=== PATIENT | female | born 1955 ===

== ENCOUNTER 2021-08-23 07:57 | Outpatient (CLI) | payer MEDICARE ==
[2021-08-23] MEDS ORDERED: Iopamidol 370 76% 100 ML VIAL ONE (15:41)
== END 2021-08-23 07:58 | disposition home or self-care (01) ==
LOC: CT 07:57
PROVIDERS: ATTEND Specialist
DX: I71.4 Abdominal aortic aneurysm, without rupture (principal); K44.9 Diaphragmatic hernia without obstruction or gangrene; K57.30 Diverticulosis of large intestine without perforation or abscess without bleeding; I70.0 Atherosclerosis of aorta
CPT/HCPCS: 74174; 82565; Q9967